=== PATIENT | female | born 1970 | race Caucasian/White ===

== ENCOUNTER 2021-06-11 11:42 | Outpatient (CLI) | payer OTHER, SELFPAY ==
--- NOTE | 2021-06-11 12:42 | ECG_ITS ---
Measurements Intervals [place] Rate: 66 P: 43 SC: 146 QRS: 64 QRSD: 83 T: 51 QT: 367 QTc: 387 Interpretive Statements SINUS RHYTHM DELAYED PRECORDIAL R/S TRANSITION BASELINE ARTIFACT- I, III, AVR, AVL, AVF, V3 BORDERLINE ECG Electronically Signed On 06-11-2021 15:27:59 SOCK [employer]URNER by Zen Hull D.O.
[2021-06-11 13:06] LABS: Basophils Absolute Auto 0.1 K/mm3 (0.0-0.1); Eosinophils Absolute Auto 0.2 K/mm3 (0-0.3); Eosinophils Percent Auto 2.1 % (0-4.4); Hematocrit 42.5 % (37.0-47.0); Immature Granulocyte Absolute 0.03 K/mm3 (0.00-0.031); Immature Granulocyte Percent A 0.4 % (0-0.5); Lymphocytes Percent Auto 29.8 % (18.3-44.2); Mean Corpuscular HGB Conc 32.9 g/dl (32-36); Mean Corpuscular Hemoglobin 30.9 pg (26-34); Mean Corpuscular Volume 93.8 fl (80-100); Mean Platelet Volume 9.7 fl (7.4-10.4); Monocytes Absolute Auto 0.6 K/mm3 (0.1-0.6); Monocytes Percent Auto 6.6 % (2.6-8.5); Neutrophils Absolute Auto 5.1 K/mm3 (1.3-6.7); Neutrophils Percent Auto 60.1 % (45.5-73.1); Platelet Count Result 357 k/mm3 (150-375); Red Blood Count 4.53 M/mm3 (4.2-5.4); White Blood Count 8.4 K/mm3 (4.5-10.0)
[2021-06-11 13:15] LABS: INR 0.9; Prothrombin Time 12.2 Seconds (11.1-14.7)
[2021-06-11 13:17] LABS: Alanine Aminotransferase 18 U/L (4-35); Alkaline Phosphatase 59 U/L (38-126); Anion Gap 4 mmol/L (8-16); Aspartate Amino Transferase 19 U/L (14-36); Bilirubin,Total 0.4 mg/dL (0.2-1.3); Blood Urea Nitrogen 13 mg/dL (7-17); Calcium 9.5 mg/dL (8.4-10.2); Carbon Dioxide 27 mmol/L (22-30); Chloride 108 mmol/L (98-107); Estimated Glomerular Filt Rate 59; Glucose 96 mg/dL (65-110); Potassium 4.1 mmol/L (3.4-5.0); Sodium 139 mmol/L (137-145)
== END 2021-06-11 11:43 | disposition home or self-care (01) ==
LOC: ANHSURGERY 11:45
PROVIDERS: PCP Family Medicine; Visit Provider Urology
DX: N81.3 Complete uterovaginal prolapse (principal); Z01.818 Encounter for other preprocedural examination; R94.31 Abnormal electrocardiogram [ECG] [EKG]
CPT/HCPCS: 36415; 80053; 85025; 85610; 85730; 86850; 86900; 86901; 87086; 93005; C9803; U0003; U0005

== ENCOUNTER 2021-06-21 00:41 | Day surgery (SDC) | payer OTHER, SELFPAY ==
[2021-06-11 12:00] VITALS: BP 116/74; PULSE 78; RESP 16; TEMP 36.6; O2SAT 98; BMI 25.1
--- NOTE | 2021-06-11 12:20 | PC.NURSE ---
Addendum entered by Ellen Carrizales RN 06/11/21 12:24: TYPO TIMES CORRECTION-ARRIVE AT 1230, OR TIME-1430. PT AWARE. Original Note: Report to the Outpatient Waiting Room, entrance under the green pavilion located off [facility], at time ___12:30PM____ on date _06/21/21____. OR Time: 2:30AM___. - You and your visitor will be asked a series of questions to screen for COVID 19 for your protection. - A mask is required within the hospital. - Only one visitor is allowed at this time. Patient visitors will be guided where to wait when not with patient. Preoperative COVID Testing Requirements: No COVID Test needed if: (proof is required; if not received patient will have Rapid Test prior to entry) - Patient has received COVID Vaccine at least 14 days prior to procedure date or - Patient has positive COVID test result within last 90 days of surgery date. COVID Test needed if above criteria is not met If not COVID vaccinated a COVID test must be conducted within 72 hours of surgery and patient is asked to isolate self from time of testing until procedure. You will go to the [facility] for your COVID testing. The [facility] is located at the corner of [address] [facility]. You will only be called if COVID results are positive and your surgeon may reschedule your elective surgery date. Patients may have clear liquids (water, carbonated beverages, clear teas, apple juice) until 3 hours prior to surgery with a maximum of 20 ounces. - No food from midnight until time of surgery 11:30am - Infants may have breast milk until 4 hours before surgery, formula 6 hours prior to surgery. - Children will be allowed to drink immediately following surgery. If applicable, please bring a bottle or sippy cup to assist with drinking. Juice, water, soda, and popsicles are readily available. For infants on formula, please bring formula the day of surgery. Pacifiers are allowed. Take the following medications with a SIP of water the morning of surgery: levothyroxine Medications to discontinue per physician none Date to take last dose Please no make-up, nail bulgarian, hairspray, perfume, deodorant, or body powder the day of surgery. No jewelry (including any body piercings) or valuables the day of surgery, leave them at home. Please take a shower or bath the night before, or the morning of, surgery with an antibacterial soap. Wear comfortable, loose fitting clothing. Children are encouraged to wear pajamas. - Jewelry must be removed prior to entering the operating room. Rings and piercings that are not removed may be cut off. - The hospital will not accept responsibility for valuables. - Please leave all valuables, including medications, at home the day of surgery. If you are going home after surgery, a licensed vending route driver must drive you home. - NO public transportation without another adult. - We recommend that an adult stay with you for 24 hours following discharge. - We also recommend that you do not drive, make important decision, drink alcoholic beverages, or take any drugs that were not prescribed by your health care provider for at least 24 hours after your discharge time. For Pediatric surgeries, we recommend two adults accompany the child home (only one inside the building at this time). Follow any additional instructions given to you from your surgeon. Telephone instructions given to patient____and asked if any additional questions and then verbalized understanding. Patient advised to call surgeon office or pre surgery nurse liaison [phone] if any additional questions.
--- NOTE | 2021-06-13 14:27 | PM.IMHP ---
H&P: HPI History of Present Illness Date/Time: 06/13/21 14:27 51yo with uterine prolapse and valerie on urodyanmics Chief Complaint: POP/VALERIE Review of Systems Review of Systems: All systems reviewed & are unremarkable except as noted in HPI and below PMFSH Social History Social History Smoking status: Never smoker Alcohol intake: current Drinks per week: 4 Substance use: never Additional living arrangements comments: HUSB AND 2 SONS Spiritual care concerns: No Meds Home Medications and Allergies Home Medications Medication Instructions Recorded Confirmed Type levothyroxine 125 mcg PO QAM 06/11/21 06/11/21 History sumatriptan succinate 100 mg PO BID PRN 06/11/21 06/11/21 History topiramate 25 mg PO HS 06/11/21 06/11/21 History topiramate 100 mg PO HS 06/11/21 06/11/21 History Allergies Allergy/AdvReac Type Severity Reaction Status Date / Time aspirin AdvReac Nausea Verified 06/11/21 11:54 Exam Narrative: apex at +1 Assessment and Plan Assessment and plan (1) Uterine prolapse: Code(s): N81.4 - Uterovaginal prolapse, unspecified Status: Acute Assessment and Plan: robotic Sacral colpoepxy (2) VALERIE (stress urinary incontinence, female): Code(s): N39.3 - Stress incontinence (female) (male) Status: Acute Assessment and Plan: urethral sling
--- NOTE | 2021-06-16 09:53 | P.HP_ITS ---
H&P: HPI History of Present Illness Date/Time: 06/16/21 09:53 51-year-old female status post ablation admitted for repair of vaginal prolapse. She will undergo robotic supracervical hysterectomy and bilateral salpingectomy and Dr. lucia will undertake sacral colpopexy and proceed as needed. She has had bleeding discharge and pelvic pain. Risks and benefits reviewed in full. She had all questions answered. She asked to proceed Chief Complaint: Pelvic pain/bleeding/discharge/prolapse Review of Systems Review of Systems: All systems reviewed & are unremarkable except as noted in HPI and below [facility] Social History Social History Smoking status: Never smoker Alcohol intake: current Drinks per week: 4 Substance use: never Additional living arrangements comments: HUSB AND 2 SONS Spiritual care concerns: No Meds Home Medications and Allergies Home Medications Medication Instructions Recorded Confirmed Type levothyroxine 125 mcg PO QAM 06/11/21 06/11/21 History sumatriptan succinate 100 mg PO BID PRN 06/11/21 06/11/21 History topiramate 25 mg PO HS 06/11/21 06/11/21 History topiramate 100 mg PO HS 06/11/21 06/11/21 History Allergies Allergy/AdvReac Type Severity Reaction Status Date / Time aspirin AdvReac Nausea Verified 06/11/21 11:54 Exam Const: General: no acute distress Eyes: General: appearance normal, both eyes and all related structures Neck: Neck: supple and no JVD Thyroid: thyroid normal Resp: Effort & Inspection: normal respiratory effort Auscultation: clear to auscultation bilaterally Cardio: Rate: regular rate Rhythm: regular rhythm GI: Inspection: non-distended GI Palp: Yes Soft to palpation, No Tenderness to palpation present (GI) and No Guarding due to palpation present (GI) Auscultation: normal bowel sounds : External Female Exam: normal external appearance Speculum Exam - Vagina: normal appearance of the vagina Speculum Exam - Cervix: Cervical os closed (Second-degree prolapse) Bimanual exam- vagina & uterus: enlarged Bimanual Exam- Adnexa, other: normal adnexae Skin: General skin exam: no rashes or lesions noted Extrem: General: normal to inspection and no edema Psych: Mental Status: mental status grossly normal Affect: normal affect Assessment and Plan Additional Plan Impression: Bleeding discharge prolapse Plan: Robotic supracervical hysterectomy and bilateral salpingectomy
[2021-06-21] VITALS (13 sets, daily range): BP systolic 116–146; BP diastolic 70–89; PULSE 68–85; RESP 14–16; TEMP 36.1–36.3; O2SAT 100
--- NOTE | 2021-06-21 07:04 | WPDHPUPDATE1 ---
History and Physical Update Update Date/Time: 06/21/21 07:04 History and Physical has been reviewed, including an updated exam of the patient. There are NO changes in the patient's condition. Risks, benefits, and alternatives have been discussed and questions answered. Patient agrees to proceed with procedure.
--- NOTE | 2021-06-21 07:08 | WPDHPUPDATE1 ---
History and Physical Update Update Date/Time: 06/21/21 07:08 History and Physical has been reviewed, including an updated exam of the patient. There are NO changes in the patient's condition. Risks, benefits, and alternatives have been discussed and questions answered. Patient agrees to proceed with procedure.
--- NOTE | 2021-06-21 11:26 | P.PNAN_ITS ---
Anes - Initial Pre Proc Eval Procedure: Operation Date: 06/21/21 14:30 Proposed Procedures p Robotic Sacrocolpopexy, - Andrew Chapman MD s Urethral Sling - Andrew Chapman MD s Robotic Assisted Supracervical Hysterectomy with Bilateral Salpingectomy - Philipp Andino MD Date/Time: 06/21/21 11:26 Surgeon: Andrew Chapman MD Pre Op Diagnosis: compl uterine prolapse, stress incont Patient Data Age: 51 Gender: F Height: 1.54 m Weight: 59.3 kg Last Vital Signs Temp 36.6 C 06/11/21 12:00 Pulse 78 06/11/21 12:00 Resp 16 06/11/21 12:00 BP 116/74 06/11/21 12:00 Pulse Ox 98 06/11/21 12:00 Allergies Allergy/AdvReac Type Severity Reaction Status Date / Time aspirin AdvReac Nausea Verified 06/11/21 11:54 Home Medications Medication Instructions Recorded Confirmed Type levothyroxine 125 mcg PO QAM 06/11/21 06/11/21 History sumatriptan succinate 100 mg PO BID PRN 06/11/21 06/11/21 History topiramate 25 mg PO HS 06/11/21 06/11/21 History topiramate 100 mg PO HS 06/11/21 06/11/21 History Patient hx anesthesia problems: none Family hx anesthesia problems: none Results Review: All pre-operative results and documents have been reviewed as part of the pre-operative evaluation. [facility] Past Medical History Medical History Hx of migraines Hypothyroid Social History Social History Smoking status: Never smoker Alcohol intake: current Drinks per week: 4 Substance use: never Living arrangements: with family Additional living arrangements comments: HUSB AND 2 SONS Spiritual care concerns: No Anes - Eval Final PreProcedure Day of Procedure 06/21/21 11:26 Patient weight: normal Heart: regular rate and rhythm Lungs: clear to auscultation Airway: Mallampati scale class II Neurological: alert and oriented Last oral intake: >/= 8 hours ASA classification: II Emergent: no Anesthetic plan: proceed Anesthesia type and monitoring: general ETT and standard monitoring Results Review: All pre-operative results and documents have been reviewed as part of the pre-operative evaluation. Informed Consent: The patient's anesthetic plan and its attendant risks and benefits were discussed with the patient/family/POA. Questions were solicited and answers provided to the satisfaction of the patient/family/POA.
[2021-06-21] MEDS: ACETAMINOPHEN 500 MG TABLET 1000 MG PO (11:37)
[2021-06-21] MEDS: LACTATED RINGERS 1,000 ML 30 ML IV CONT ×2 (11:37→14:56)
[2021-06-21] MEDS: KETOROLAC 15 MG/ML VIAL (*BKC) IV PUSH (11:37)
[2021-06-21] MEDS: ceFAZolin 2 GM/D5W 50 ML 2 GM/50 ML BAG IVPB (11:49)
[2021-06-21] MEDS: metroNIDAZOLE 500 MG/ISO 100ML 500 MG/100 ML BAG 100 MG IVPB (11:58)
[2021-06-21] MEDS: LIDO 1%/EPINEPHRINE 1:100,000 50 ML VIAL INFILTRATE (12:32)
--- NOTE | 2021-06-21 12:56 | W.PM.PROC2 ---
Procedure Note - Detailed Date of Procedure 06/21/21 Pre-op Diagnosis compl uterine prolapse, stress incont Post-op Diagnosis same Procedure Performed Robotic supracervical hysterectomy and bilateral salpingectomy Surgeon Philipp Andino MD Anesthesia general Indications this is a 51-year-old female with a history of uterine prolapse Findings prolapsed uterus which appeared to be markedly enlarged with fibroids. Tubes status post tubal ligation. Normal-appearing ovaries Description of Procedure the patient is prepped draped in the normal sterile fashion placed in dorsal lithotomy position. Under excellent general trach anesthesia weighted speculum placed in posterior fornix vagina. Anterior lip of the cervix grasped with single-tooth tenaculum and the Roberts's cannula inserted attached to the single-tooth. Uterus was noted be markedly enlarged and 1/3degree prolapse present. Once this was placed Dr. carreno proceeded with docking. Please see the his operative report for full details. Once robot was docked attention was turned to the adult school counselor. The left round ligament was grasped, burned, cut. Anteriorly a bladder flap was formed by sharply dissecting peritoneum dissecting the peritoneum and pushing the bladder caudally away from the uterus and cervix to the opposite round ligament was clamped, burned. Next the portion of fallopian tube attached the ovary was sharply dissected passed off through the right upper quadrant incision the right portion of tube was removed in the same fashion. Utero-ovarian ligament was then skeletonized the left. This was clamped, burned, cut and brought down to the level of the uterine vessels. These were large and tortuous and individually clamped, burned, cut. In like fashion the utero-ovarian ligament was clamped, burned, cut and brought to the level the previously cut right this conserve both ovaries. Cardinal broad ligaments then serially skeletonized brought lateral edge of the markedly enlarged uterus by clamping burning and cutting into the uterine vessels could be seen on the right. These were individually clamped, burned, cut. At that point supracervical incision was made and the uterus was left in the cul-de-sac with the tube cyst attached. Dr. pickens took over from there. Blood loss was 5cc to this point there were no complications up to this time Estimated Blood Loss 5 Drains No Packing No Pathology yes Complications No immediate complications Condition stable Disposition PACU
--- NOTE | 2021-06-21 14:57 | W.PM.PROC2 ---
Procedure Note - Detailed Date of Procedure 06/21/21 Pre-op Diagnosis compl uterine prolapse, stress incontince Post-op Diagnosis same Procedure Performed Robotic assisted laparoscopic sacral colpopexy Urethral sling Cystoscopy Surgeon Andrew Chapman MD Anesthesia general Indications A woman with uterine prolapse as well as stress incontinence. She desires surgical correction. She is here for the above. She understands risks of bleeding, infection, diskitis, damage to surrounding organs, bowel injury, bowel obstruction, mesh related complications including exposure and extrusion, postoperative voiding dysfunction including incontinence and retention, need for ancillary procedures, dyspareunia, recurrence of prolapse, and other perioperative intraoperative postoperative complications. She agrees to proceed. Findings See below Description of Procedure She was correctly identified. Informed consent obtained. She from the operating room. She was given general anesthesia. She was given appropriate perioperative antibiotics. She was placed a low lithotomy position. Pressure points were padded. A time-out performed. I marked out the skin 3 fingerbreadths cephalad to the umbilicus. I anesthetized the skin. I incised the skin. I dissected down to the fascia. I grasped the fascia with Calixto clamps. I entered the fascia sharply in a Vickers type technique. I placed sutures for later fascial closure. I placed a midline trocar. I examined the abdomen. There is no sign of any injury. Under direct vision I placed 2 additional trocars in the right upper quadrant and 2 additional trocars the left upper quadrant. She was placed in steep Trendelenburg. The robot was docked. Her cotton jammer completed their portion of the procedure. Please see that operative report for details. I then sat at the console. The Sizer in the vagina created plane on the anterior and posterior vaginal wall. I took great care not to injure the vagina, bladder, or rectum. I introduced the mesh into the abdomen. I sewed the anterior leaflet of mesh on the anterior vaginal wall. I sewed the posterior leaflet of mesh on the posterior vaginal wall. This was done with several sutures of 2 0 Pl[place]-Harjit. I reflected the colon laterally. I opened the posterior peritoneum over the sacral promontory. I carried this into the cul-de-sac. I freed up the edges for later retroperitonealization. I located the anterior longitudinal ligament the sacrum. I cleaned off all fatty tissues. I then tensioned my mesh appropriately. I did a vaginal exam the bedside. I assured prolapse reduction without undue tension. She has a very long intravaginal component of her cervix. The apex is very well supported but she has a lot a cervical mass intravaginally. If this is symptomatic she might benefit from a LEEP. I then sewed the proximal leaflet of mesh onto the anterior longitudinal ligament of the sacrum with several sutures of 2 0 [place]-Harjit. I then used a 2 0 Monocryl to completely and meticulously retroperitonealized all mesh. I allowed the colon to go back to its normal anatomic location. There is no sign of any impingement. The specimen was then removed. All ports removed. Fascial sutures were tied down. Skin was closed with Monocryl and surgical glue. She was repositioned and prepped for urethral sling. I marked out the inner thigh incisions. I anesthetized the skin and made the incisions. I then anesthetized the anterior vaginal wall at the mid urethra. I made a 1 cm incision. I dissected out laterally taking great care not to injure the refilled vaginal wall. I passed the helical trocars. I did this 1st on the left and then on the right. This was done from the thigh incision towards the vaginal incision. Sling was connected to the trocars and brought out the thigh incision. I tensioned the sling appropriately. I cut and the plastic sheaths. I closed the incision with 2
[2021-06-21] MEDS: ONDANSETRON INJ 4 MG/2 ML VIAL IV PUSH (16:15)
[2021-06-21] MEDS: oxyCODONE HCL (*CRX) 5 MG TAB IR PO (16:58)
--- NOTE | 2021-06-21 18:07 | SUR.PHASEII ---
prior to discharge pt started becoming nauseated after transitioning to the . pt dry heaved. pt attempted to go to the bathroom and said that she felt better after going to the bathroom. pt refused the scop patch.
== END 2021-06-21 17:46 | disposition home or self-care (01) ==
PROVIDERS: Obstetrics & Gynecology; PCP Family Medicine; Visit Provider Urology
PROC: (CPT 57425; principal; 2021-06-21 14:30)
PROC: (CPT 57425; 2021-06-21 14:30)
PROC: 0UT94ZZ Resection of Uterus, Percutaneous Endoscopic Approach (ICD-10-PCS; CPT 57425; 2021-06-21 14:30)
DX: N81.3 Complete uterovaginal prolapse (principal); N39.3 Stress incontinence (female) (male); D25.1 Intramural leiomyoma of uterus; N83.8 Other noninflammatory disorders of ovary, fallopian tube and broad ligament; E03.9 Hypothyroidism, unspecified
CPT/HCPCS: 57425; 57288; 58542; S2900 ×2; 36415; 80053; 85025; 85610; 85730; 86850; 86900; 86901; 87086; 88307; 93005; A9270; C1771; C1781; C9290; C9803; J0690; J1100; J1170; J1885; J2250; J2405; J2704; J2710; J3010; J7030; J7120; U0003; U0005